=== PATIENT | male | born 1965 | race Caucasian/White ===

== ENCOUNTER 2021-01-23 20:26 | Emergency (ER) | payer OTHER ==
[~2021-01-23] VITALS: Ht 172.7 cm; Wt 75.0 kg
[2021-01-23] MEDS ORDERED: MOTRIN 400400 MG/TAB PO (22:46)
[2021-01-23] MEDS ORDERED: TYLENOL 325MG325 MG PO (22:46)
[2021-01-23] MEDS ORDERED: CEPHALEXIN500 M1 PO (22:46)
[2021-01-23 23:13] VITALS: BP 148/92; PULSE 87; TEMP 98.7
== END 2021-01-23 23:30 | disposition home or self-care (01) ==
LOC: COL.ER 20:26
DX: S42.001A Fracture of unspecified part of right clavicle, initial encounter for closed fracture (principal); S01.81XA Laceration without foreign body of other part of head, initial encounter; V89.2XXA Person injured in unspecified motor-vehicle accident, traffic, initial encounter
CPT/HCPCS: J3010

== ENCOUNTER → 2021-02-04 | Outpatient (CLI) | payer OTHER ==
[~2021-02-04] MED LIST: CEPHALEXIN500 M1 PO; MOTRIN 400400 MG/TAB PO; TYLENOL 325MG325 MG PO
== END ==
LOC: COL.RAD 10:53
DX: S22.41XA Multiple fractures of ribs, right side, initial encounter for closed fracture (principal); S42.001A Fracture of unspecified part of right clavicle, initial encounter for closed fracture